=== PATIENT | male | born 1955 | race Caucasian/White ===

== ENCOUNTER 2019-01-26 18:24 | Emergency (ER) | payer OTHER ==
[~2019-01-26] VITALS: Ht 177.8 cm; Wt 136.1 kg
--- OUTSIDE RECORDS SUMMARY | 2019-01-26 18:28 | XMS REPORT | Continuity of Care Document ---
Author Organization Unknown Address Unknown Allergies There is no data. Medications There is no data. Problems There is no data. Procedures There is no data. Results There is no data. Encounters ACCT No. Visit Date/Time Discharge Status Pt. Type Provider Facility Loc./Unit Complaint [id number] 01/26/2019 18:00:00 [facility] Outpatient SELF, DOUG Da Silva [facility]
[2019-01-26] MEDS ORDERED: LIDOCAINE 1% INJ 20 ML 20 ML VIAL INJ ONE (18:45)
[2019-01-26] MEDS ORDERED: TETANUS,DIPTH,PERTUSS P/F (BOOSTRIX) 0.5 ML VIAL IM ONE (18:45)
--- NOTE | 2019-01-26 18:53 | NUR ---
REPORT GIVEN TO SANDRA.
--- NOTE | 2019-01-26 19:50 | ED General ---
General Chief Complaint: Laceration Stated Complaint: LT RING FINGER LAC Nursing Triage Note: ARRIVED VIA AMB FROM URGENT CARE. PT STATES HE CUT HIS LEFT 4TH FINGER WITH A KNIFE. Nursing Sepsis Screen: No Definite Risk Source of Information: Patient Exam Limitations: No Limitations History of Present Illness Date Seen by Provider: Jan 26, 2019 Time Seen by Provider: 18:30 Initial Comments This 63-year-old gentleman presents to the emergency room with a large deep laceration on the finger pad of his left ring finger. He was passing a new knife from his right hand to his left hand when he accidentally cut himself. He denies any other injuries. Wound is oozing blood at this time. He presents with it wrapped in gauze. He is past due for his tetanus immunization. Allergies and Home Medications Allergies Coded Allergies: shrimp (Verified Allergy, Unknown, 01/26/19) Uncoded Allergies: RED PEPPER (Allergy, Unknown, 01/26/19) Home Medications Hydrocodone/Acetaminophen 1 Each Tablet, 1 TAB PO Q4-6HR Prescribed by: CHUCK ALBERTO on 01/26/191958 Patient Home Medication List Home Medication List Reviewed: Yes Review of Systems Review of Systems Constitutional: no symptoms reported EENTM: no symptoms reported Respiratory: no symptoms reported Cardiovascular: no symptoms reported Gastrointestinal: no symptoms reported Genitourinary: no symptoms reported Musculoskeletal: no symptoms reported Skin: see HPI Psychiatric/Neurological: No Symptoms Reported Hematologic/Lymphatic: No Symptoms Reported Past Gicpehf-Lwpbac-Ofgcti Hx Patient Social History Alcohol Use: Denies Use Recreational Drug Use: No Smoking Status: Never a Smoker Recent Foreign Travel: No Contact w/Someone Who Travel: No Recent Infectious Disease Expo: No Recent Hopitalizations: No Past Medical History Surgeries: Yes (KIDNEY REMOVAL, TESTICULAR) Nephrectomy Respiratory: No Cardiac: Yes Hypertension Neurological: No 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 oz. [id number]; BMI Method:Stated General Appearance: No Apparent Distress, WD/WN HEENT: PERRL/EOMI, Normal ENT Inspection Neck: Normal Inspection Respiratory: Lungs Clear, Normal Breath Sounds, No Accessory Muscle Use Cardiovascular: Regular Rate, Rhythm, No Edema, No Murmur Extremity: Other (2 cm deep laceration in the finger pad of the left ring finger with using blood) Neurologic/Psychiatric: Alert, Oriented x3, No Motor/Sensory Deficits, Normal Mood/Affect, bin filler II-XII Norm as Tested Skin: Normal Color, Warm/Dry, Other (see extremity exam above) Procedures/Interventions Wound Location: Other (left ring finger) Wound Length (cm): 2 Wound's Depth, Shape: linear, sub Q Wound Explored: clean Irrigated w/ Saline (ccs): 500 Betadine Prep?: Yes Anesthesia: 1% Lidocaine Volume Anesthetic (ccs): 4 Suture: Vicryl (Polysorb) Suture Size: 4-0 Number of Sutures: 7 Sterile Dressing Applied?: Yes Progress Digital block was performed with lidocaine. Skin was cleaned with alcohol and local injection was administered at the site of the wound. Wound was then scrubbed with chlorhexidine and normal saline and then irrigated with normal saline. Betadine was applied and sutures were placed to approximate the wound. Progress/Results/Core Measures Suspected Sepsis Recent Fever Within 48 Hours: No Infection Criteria Present: None New/Unexplained Altered Menta: No Sepsis Screen: No Definite Risk SIRS Temperature:98.0 Pulse: 96 Respiratory Rate: 16 Blood Pressure 183 /104 Mean: 130 Results/Orders My Orders Orders - CHUCK DURAN MD Dipht,Pertdalia(Acell),Tet Adult (Boostrix (01/26/19 18:45) Lidocaine 1% Inj 20 Ml (Xylocaine 1% Inj (01/26/19 18:45) Sulfamethoxazole/Trimet Ds Tab (Bactrim (01/26/19 20:00) Sulfamethoxazole/Trimet Ds Tab (Bactrim (01/26/19 20:00) Medications Given in ED Current Medications Medications Dose Ordered Sig/Dino Route Start Time Stop Time Status Last Admin Dose Admin Diphtheria/ Tetanus/Acell Pertussis 0.5 ml ONCE ONCE IM 01/26/19 18:45 01/26/19 18:46 DC 01/26/19 19:01 0.5 ML Lidocaine HCl 20 ml ONCE ONCE INJ 01/26/19 18:45 01/26/19 18:46 DC 01/26/19 18:59 20 ML Vital Signs/I&O 01/26/19 01/26/19 18:26 20:19 Temp 98.0 98.0 Pulse 96 96 Resp 16 16 B/P (MAP) 183/104 (130) 183/104 (130) Pulse Ox 97 97 O2 Delivery Room Air Capillary Refill : NONE Blood Pressure Mean: 130 Progress Note : Progress Note General block was performed on the finger. Laceration was cleaned and irrigated. It was repaired with absorbable suture. Bactrim DS 2 was given for infection prophylaxis. Tetanus booster was administered. Departure Impression Primary Impression: Laceration of finger Qualified Codes: S61.215A - Laceration without foreign body of left ring finger without damage to nail, initial encounter Disposition: HOME, SELF-CARE Condition: Improved Departure-Patient Inst. Decision time for Depature: 19:45 Referrals: SELF,DOUG MARIE (PCP) Primary Care Physician Patient Instructions: Laceration Repair With Stitches (DC) Add. Discharge Instructions: Keep your wound clean and dry except for normal handwashing and showering. You may allow soapy water to run over the wound but avoid scrubbing directly over the sutures. Your sutures will dissolve. Do not submerge or exposed to dirty environments until sutures haven't dissolved away. If sutures have not dissolved within 10 days and you would like them removed, you may return to have them removed. Monitor for signs of infection such as increasing swelling, increasing redness, puslike drainage, increasing pain, or fever. Return to care promptly if you notice these symptoms. You may leave the wound open to air when at rest, but cover when active or working. You may use a clean glove or a light dressing to cover. You may use antibiotic ointment to prevent the wound from sticking to the dressing. All discharge instructions reviewed with patient and/or family. Voiced understanding. Scripts Hydrocodone/Acetaminophen (Hydrocodone-Acetamin 5-325 mg) 1 Each Tablet 1 TAB PO Q4-6HR for Pain, #15 TAB Prov: CHUCK DURAN MD 01/26/19 CHUCK DURAN MD Jan 26, 2019 19:50
[2019-01-26] MEDS ORDERED: HYDR-3812 PO (19:59)
[2019-01-26] MEDS ORDERED: TRIM/SULFAMETH 160/800 (SEPTRA DS) TAB PO ONE ×2 (20:00)
[2019-01-26 20:19] VITALS: BP 183/104
== END 2019-01-26 20:06 | disposition home or self-care (01) ==
LOC: ER FS 18:25
DX: S61.214A Laceration without foreign body of right ring finger without damage to nail, initial encounter (principal); I10 Essential (primary) hypertension; M10.9 Gout, unspecified; Z90.5 Acquired absence of kidney; Z85.47 Personal history of malignant neoplasm of testis; Z23 Encounter for immunization; W26.0XXA Contact with knife, initial encounter
CPT/HCPCS: 12031; 64450; 90715

== ENCOUNTER 2021-01-16 13:02 | Emergency (ER) | payer OTHER ==
[~2021-01-16] VITALS: Ht 177.8 cm; Wt 140.0 kg
[~2021-01-16 13:02] MED LIST: ACHD5005 PO
--- NOTE | 2021-01-16 14:09 | Diagnostic Imaging Report ---
INDICATION: Fall with right elbow pain AP, oblique, and lateral views of the right elbow were obtained No fracture or acute bone abnormality is seen. There is no elevation of posterior fat pad. IMPRESSION: Negative right elbow. Dictated by: Dictated on workstation # [id number]
--- NOTE | 2021-01-16 14:11 | Diagnostic Imaging Report ---
Indication: Fall with right hand pain AP, oblique, and lateral views of the right hand are obtained. No fracture or acute bony abnormality is seen. There are mild degenerative findings in the carpal bones and 1st MCP joint. IMPRESSION: No acute abnormality of the right hand. Dictated by: Dictated on workstation # [id number]
--- NOTE | 2021-01-16 14:14 | Diagnostic Imaging Report ---
INDICATION: Fall with right shoulder pain AP, oblique, and transscapular views of the right shoulder are obtained No fracture or acute bone abnormality is seen. Glenohumeral joint and AC joint appear in good alignment. IMPRESSION: Negative right shoulder. Dictated by: Dictated on workstation # [id number]
[2021-01-16 14:15] LABS: WHITE BLOOD COUNT 8.2 10^3/uL (4.3-11.0)
[2021-01-16 14:16] LABS: BASOPHILS % (AUTO) 1 % (0-10); EOSINOPHILS % (AUTO) 2 % (0-10); HEMATOCRIT 36 % (40-54); HEMOGLOBIN 11.7 G/DL (13.3-17.7); LYMPHOCYTES # (AUTO) 1.9 X 10^3 (1.0-4.0); LYMPHOCYTES % (AUTO) 23 % (12-44); MEAN CORPUSCULAR HEMOGLOBIN 26 PG (25-34); MEAN CORPUSCULAR HGB CONC 32 G/DL (32-36); MEAN CORPUSCULAR VOLUME 80 FL (80-99); MEAN PLATELET VOLUME 8.2 FL (7.4-10.4); MONOCYTES % (AUTO) 8 % (0-12); NEUTROPHILS # (AUTO) 5.3 X 10^3 (1.8-7.8); NEUTROPHILS % (AUTO) 64 % (42-75); PLATELET COUNT 221 10^3/uL (130-400)
[2021-01-16 14:17] LABS: BASOPHILS # (AUTO) 0.1 10^3/uL (0.0-0.1); EOSINOPHILS # (AUTO) 0.2 10^3/uL (0.0-0.3); MONOCYTES # (AUTO) 0.7 X 10^3 (0.0-1.0)
--- NOTE | 2021-01-16 14:24 | ED Upper Extremity ---
General Chief Complaint: General Problems/Pain Stated Complaint: RIGHT SHOULDER PAIN | RIGHT ELBOW PAIN | BACK PAIN Nursing Triage Note: Patient reports he was driving on a long trip when his right arm/wrist/elbow began hurting. He also reports right shoulder/upper back pain that he attributes to "favoring" his right arm. He reports a fall one month ago, states he had no pain in his right elbow/arm/wrist until 5 days ago. Nursing Sepsis Screen: No Definite Risk Source: patient History of Present Illness Date Seen by Provider: Jan 16, 2021 Time Seen by Provider: 13:45 Initial Comments Patient is a right-handed male who presents with right elbow pain described as sharp throbbing and radiating. Pain is intermittent and last for minutes at a time. It is rated moderate to severe. Pain is worse with hand and arm use. Pain radiates from the lateral epicondyle into the wrist and up to the mid arm region. He denies shoulder aching chest pain, tightness or shortness of breath. Symptoms are nonexertional but reproduce only with extremity movement. No weakness or loss of sensation. Patient first noticed symptoms after driving several hours 2 days neuro and using an abnormal steering technique with his right hand several days ago. No therapies or medications taken prior to ED arrival.. Onset: last week Pain/Injury Location: right elbow, right forearm, right wrist Method of Injury: other Modifying Factors: Improves With Other Allergies and Home Medications Allergies Coded Allergies: shrimp (Verified Allergy, Unknown, 01/26/19) Ivrxllm-Kto-Ejz Reductase Inhibitor (Verified Adverse Reaction, Unknown, muscle pain, 01/16/21) Uncoded Allergies: RED PEPPER (Allergy, Unknown, 01/26/19) Home Medications Hydrocodone Bit/Acetaminophen 1 Each Tablet, 1 TAB PO Q4-6HR Prescribed by: CHUCK ALBERTO on 01/26/191958 Patient Home Medication List Home Medication List Reviewed: Yes Review of Systems Constitutional: see HPI EENTM: see HPI Respiratory: see HPI Cardiovascular: see HPI Gastrointestinal: see HPI Genitourinary: see HPI Musculoskeletal: see HPI Skin: see HPI Psychiatric/Neurological: See HPI All Other Systems Reviewed Negative Unless Noted: Yes Past Yzifjik-Nkehsf-Chbzge Hx Past Med/Social Hx: Reviewed Nursing Past Med/Soc Hx Patient Social History Alcohol Use: Denies Use Smoking Status: Never a Smoker 2nd Hand Smoke Exposure: No Recent Infectious Disease Expo: No Recent Hopitalizations: No Past Medical History Surgeries: Yes (KIDNEY REMOVAL, TESTICULAR, colon resection) Gallbladder, Nephrectomy Respiratory: No Cardiac: Yes High Cholesterol, Hypertension Neurological: No 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 oz. 136.028483uu; 44.00 BMI Method:Stated General Appearance: WD/WN, no apparent distress Neck: non-tender, full range of motion, supple, normal inspection Back: normal inspection Shoulder: no evidence of injury Elbow/Forearm: pain, soft tissue tenderness, swelling (Lateral epicondyle) Wrist: Yes normal inspection, Yes non-tender Hand: normal inspection, non-tender Neurologic/Psychiatric: no motor/sensory deficits, alert, oriented x 3 Procedures/Interventions Suture Size: 4-0 Progress/Results/Core Measures Results/Orders Lab Results Laboratory Tests Test 01/16/21 14:00 Range/Units White Blood Count 8.2 4.3-11.0 10^3/uL Red Blood Count 4.52 4.35-5.85 10^6/uL Hemoglobin 11.7 L 13.3-17.7 G/DL Hematocrit 36 L 40-54 % Mean Corpuscular Volume 80 80-99 FL Mean Corpuscular Hemoglobin 26 25-34 PG Mean Corpuscular Hemoglobin Concent 32 32-36 G/DL Red Cell Distribution Width 15.7 H 10.0-14.5 % Platelet Count 221 130-400 10^3/uL Mean Platelet Volume 8.2 7.4-10.4 FL Immature Granulocyte % (Auto) 1 % Neutrophils (%) (Auto) 64 42-75 % Lymphocytes (%) (Auto) 23 12-44 % Monocytes (%) (Auto) 8 0-12 % Eosinophils (%) (Auto) 2 0-10 % Basophils (%) (Auto) 1 0-10 % Neutrophils # (Auto) 5.3 1.8-7.8 X 10^3 Lymphocytes # (Auto) 1.9 1.0-4.0 X 10^3 Monocytes # (Auto) 0.7 0.0-1.0 X 10^3 Eosinophils # (Auto) 0.2 0.0-0.3 10^3/uL Basophils # (Auto) 0.1 0.0-0.1 10^3/uL Immature Granulocyte # (Auto) 0.1 0.0-0.1 10^3/uL My Orders Orders - ALCIRA DENNIS DO Cbc With Automated Diff (01/16/21 13:32) Comprehensive Metabolic Panel (01/16/21 13:32) Hand 3 View Right (01/16/21 13:32) Elbow 3 View Right (01/16/21 13:32) Shoulder 3 View Right (01/16/21 13:47) Vital Signs/I&O 01/16/21 13:14 Temp 36.4 Pulse 61 Resp 18 B/P (MAP) 220/111 (147) Pulse Ox 96 O2 Delivery Room Air Blood Pressure Mean: 147 Departure Communication (Admissions) Right shoulder/elbow/wrist: No acute disease per radiology report. Reproducible right elbow pain most consistent with lateral epicondylitis. Impression Primary Impression: Tennis elbow syndrome Disposition: 01 HOME, SELF-CARE Condition: Stable Departure-Patient Inst. Decision time for Depature: 14:24 Referrals: DOUG KNIGHT MD (PCP/Family) Primary Care Physician Patient Instructions: Lateral Epicondylitis (DC) Add. Discharge Instructions: Please wear arm sling, and take naproxen 500 mg twice daily. Avoid repetitive strain right arm movements. Follow-up with your PCP in 10 to 12 days if symptoms persist. All discharge instructions reviewed with patient and/or family. Voiced understanding. ALCIRA DENNIS DO Jan 16, 2021 14:24
[2021-01-16 14:32] LABS: BUN/CREATININE RATIO 17; CALCIUM 9.6 MG/DL (8.5-10.1); CARBON DIOXIDE 25 MMOL/L (21-32); CHLORIDE 105 MMOL/L (98-107); CREATININE SERUM 2.09 MG/DL (0.60-1.30); GFR ESTIMATED 32; GLUCOSE 117 MG/DL (70-105); POTASSIUM 4.8 MMOL/L (3.6-5.0); SODIUM 139 MMOL/L (135-145)
[2021-01-16 14:33] LABS: ALANINE AMINOTRANSFERASE 31 U/L (0-55); ALBUMIN 3.7 GM/DL (3.2-4.5); ALKALINE PHOSPHATASE 55 U/L (40-136); BILIRUBIN,TOTAL < 0.2 MG/DL (0.1-1.0)
[2021-01-16 14:46] VITALS: BP 190/92
== END 2021-01-16 14:46 | disposition home or self-care (01) ==
LOC: EDUNIT# 13:02 → ER FS 13:05
DX: M77.11 Lateral epicondylitis, right elbow (principal); I10 Essential (primary) hypertension; Z88.8 Allergy status to other drugs, medicaments and biological substances
CPT/HCPCS: 36415; 73030; 73080; 73130; 80053; 85025

== ENCOUNTER 2023-03-31 13:26 | Emergency (ER) | payer MEDICARE, OTHER ==
[~2023-03-31] VITALS: Ht 177.8 cm; Wt 136.9 kg
[2023-03-31 13:49] LABS: BASOPHILS # (AUTO) 0.1 10^3/uL (0.0-0.1); BASOPHILS % (AUTO) 0 % (0-10); EOSINOPHILS % (AUTO) 0 % (0-10); HEMATOCRIT 26 % (40-54); HEMOGLOBIN 8.8 g/dL (13.3-17.7); LYMPHOCYTES # (AUTO) 0.8 10^3/uL (1.0-4.0); LYMPHOCYTES % (AUTO) 2 % (12-44); MEAN CORPUSCULAR HEMOGLOBIN 28 pg (25-34); MEAN CORPUSCULAR HGB CONC 34 g/dL (32-36); MEAN CORPUSCULAR VOLUME 85 fL (80-99); MEAN PLATELET VOLUME 9.7 fL (9.0-12.2); MONOCYTES # (AUTO) 1.5 10^3/uL (0.0-1.0); MONOCYTES % (AUTO) 4 % (0-12); NEUTROPHILS # (AUTO) 28.3 10^3/uL (1.8-7.8); NEUTROPHILS % (AUTO) 83 % (42-75); PLATELET COUNT 180 10^3/uL (130-400)
[2023-03-31 13:52] LABS: WHITE BLOOD COUNT 34.2 10^3/uL (4.3-11.0)
[2023-03-31] MEDS ORDERED: fentaNYL INJ 100 MCG/2 ML AMP IVP ONE (14:00)
[2023-03-31] MEDS ORDERED: PIPERACILLIN SODIUM/TAZOBACTAM 4.5 GM in NS (IVPB) 100 ML IV ONE (14:00)
[2023-03-31] MEDS ORDERED: fentaNYL INJ 100 MCG/2 ML AMP ONE (14:00)
--- NOTE | 2023-03-31 14:05 | ED General ---
General Chief Complaint: Lower Extremity Stated Complaint: RT LEG SWELLING Nursing Triage Note: Patient reports right lower extremity swollen and reddened for 1 week. Source of Information: Patient, EMS, Family Exam Limitations: No Limitations History of Present Illness Date Seen by Provider: Mar 31, 2023 Time Seen by Provider: 13:58 Initial Comments This 67-year-old gentleman presents to the emergency room with approximately 1 week of right lower extremity pain, swelling, and edema. He presented to his primary care provider yesterday and was started on doxycycline. Labs were obtained at that time. He received a phone call from the clinic today stating his labs were "out of whack" and that he needed to present to the emergency room promptly. EMS was activated and he presents to the emergency room via EMS. Vit al signs are unremarkable and he is afebrile on arrival. Patient gives a history of nephrectomy with single functioning kidney at this time. He denies history of diabetes. Patient's primary care provider is Dr. Narvaez. [facility] also [facility]. Allergies and Home Medications Allergies Coded Allergies: shrimp (Verified Allergy, Unknown, 01/26/19) Evqintl-Yyw-Ooq Reductase Inhibitor (Verified Adverse Reaction, Unknown, muscle pain, 01/16/21) Uncoded Allergies: RED PEPPER (Allergy, Unknown, 01/26/19) Patient Home Medication List Home Medication List Reviewed: Yes Hydrocodone Bit/Acetaminophen (Lortab 5 Mg Tablet) 1 Each Tablet, 1 TAB PO Q4- 6HR Prescribed by: CHUCK ALBERTO on 01/26/191958 Review of Systems Review of Systems Constitutional: no symptoms reported EENTM: no symptoms reported Respiratory: no symptoms reported Cardiovascular: see HPI Gastrointestinal: no symptoms reported Genitourinary: no symptoms reported Musculoskeletal: no symptoms reported Skin: see HPI Psychiatric/Neurological: No Symptoms Reported Hematologic/Lymphatic: No Symptoms Reported Immunological/Allergic: no symptoms reported Past Fnbxinb-Grfgen-Hzygzz Hx Patient Social History Tobacco Use?: No Use of E-Cig and/or Vaping dev: No Substance use?: No Alcohol Use?: No Pt feels they are or have been: No Immunizations Up To Date First/Initial COVID19 Vaccinat: Nov 29, 2020 Second COVID19 Vaccination Arie: December 27, 2020 Third COVID19 Vaccination Date: Feb 11th, 2021 Past Medical History Surgery/Hospitalization HX: RIGHT NEPHRECTOMY; RENAL CANCER; TESTICULAR CANCER; SLEEP APNEA; HTN; HIGH CHOLESTEROL; GOUT Surgeries: Yes (KIDNEY REMOVAL, TESTICULAR, colon resection) Gallbladder, Nephrectomy (Right), Testicular (Bilateral orchiectomy secondary to cancer) Respiratory: No Cardiac: Yes High Cholesterol, Hypertension Neurological: No Genitourinary: Yes (ONLY HAS ONE KIDNEY) Gastrointestinal: No Musculoskeletal: Yes Gout Endocrine: Yes ("pre-diabetes") HEENT: No Cancer: Yes Testicular, Kidney Psychosocial: No Integumentary: No Physical Exam-Suspected Sepsis Physical Exam Vital Signs Vital Signs - First Documented 03/31/23 13:41 Temp 37.5 Pulse 90 Resp 16 B/P (MAP) 116/37 (63) Pulse Ox 95 O2 Delivery Room Air Capillary Refill : Less Than 3 Seconds Blood Pressure Mean: 63 Height, Weight, BMI Height: 5'10.00" Weight: 300lbs. oz. 136.532618nq; 43.00 BMI Method:Stated General Appearance: WD/WN, Mild Distress (Secondary to pain in the right leg) HEENT: PERRL/EOMI, Normal ENT Inspection, Other (Oropharynx somewhat dry) Neck: Normal Inspection; No JVD Respiratory: Lungs Clear, Normal Breath Sounds, No Accessory Muscle Use, No Respiratory Distress Cardiovascular: Regular Rate, Rhythm, No Edema, No Murmur Gastrointestinal: Non Tender, Soft Extremity: Other (The majority of the right lower extremity is markedly edematous, erythematous, tender, and warm. There is blanching erythema from toes through the proximal thigh. Pedal pulses not palpable due to edema, but capillary refill is brisk through the toes. There is a dusky area about a centimeter in diameter near the arch of his foot with a deeper red appearance of the skin surrounding it. There is also a small amount of blood on the toe near the toenail of the third toe. The third toe on the left has a dusky ecchymotic appearance in the midportion. The distal portion of that toe is normal in appearance with brisk capillary refill.) Neurologic/Psychiatric: Alert, Oriented x3, No Motor/Sensory Deficits, Normal Mood/Affect Skin: other (See extremity exam above) Focused Exam Lactate Level 03/31/23 13:30: Lactic Acid Level 1.52 Lactic Acid Level Procedures/Interventions Suture Size: 4-0 Progress/Results/Core Measures Suspected Sepsis SIRS Temperature: Pulse: 90 Respiratory Rate: 16 Laboratory Tests 03/31/23 13:30: White Blood Count 34.2*H Blood Pressure 116 /37 Mean: 63 03/31/23 13:30: Lactic Acid Level 1.52 Laboratory Tests 03/31/23 13:30: Creatinine 10.86H, INR Comment 1.3, Platelet Count 180, Total Bilirubin 0.3 Results/Orders Lab Results Laboratory Tests Test 03/31/23 13:30 03/31/23 16:38 Range/Units White Blood Count 34.2 *H 4.3-11.0 10^3/uL Red Blood Count 3.10 L 4.30-5.52 10^6/uL Hemoglobin 8.8 L 13.3-17.7 g/dL Hematocrit 26 L 40-54 % Mean Corpuscular Volume 85 80-99 fL Mean Corpuscular Hemoglobin 28 25-34 pg Mean Corpuscular Hemoglobin Concent 34 32-36 g/dL Red Cell Distribution Width 15.0 H 10.0-14.5 % Platelet Count 180 130-400 10^3/uL Mean Platelet Volume 9.7 9.0-12.2 fL Immature Granulocyte % (Auto) 10 % Neutrophils (%) (Auto) 83 H 42-75 % Lymphocytes (%) (Auto) 2 L 12-44 % Monocytes (%) (Auto) 4 0-12 % Eosinophils (%) (Auto) 0 0-10 % Basophils (%) (Auto) 0 0-10 % Neutrophils # (Auto) 28.3 H 1.8-7.8 10^3/uL Lymphocytes # (Auto) 0.8 L 1.0-4.0 10^3/uL Monocytes # (Auto) 1.5 H 0.0-1.0 10^3/uL Eosinophils # (Auto) 0.0 0.0-0.3 10^3/uL Basophils # (Auto) 0.1 0.0-0.1 10^3/uL Immature Granulocyte # (Auto) 3.5 H 0.0-0.1 10^3/uL Neutrophils % (Manual) 72 % Lymphocytes % (Manual) 3 % Monocytes % (Manual) 4 % Band Neutrophils 21 % Platelet Estimate NORMAL Hypochromasia SLIGHT Poikilocytosis MODERATE Crenated Cell MODERATE Prothrombin Time 16.7 H 12.2-14.7 SEC INR Comment 1.3 0.8-1.4 Activated Partial Thromboplast Time 36 H 24-35 SEC Sodium Level 132 L 135-145 MMOL/L Potassium Level 5.3 H 3.6-5.0 MMOL/L Chloride Level 98 98-107 MMOL/L Carbon Dioxide Level 7 *L 21-32 MMOL/L Anion Gap 27 H 5-14 MMOL/L Blood Urea Nitrogen 125 *H 7-18 MG/DL Creatinine 10.86 H 0.60-1.30 MG/DL Estimat Glomerular Filtration Rate 5 BUN/Creatinine Ratio 12 Glucose Level 112 H 70-105 MG/DL Lactic Acid Level 1.52 0.50-2.00 MMOL/L Calcium Level 8.3 L 8.5-10.1 MG/DL Corrected Calcium 9.4 8.5-10.1 MG/DL Total Bilirubin 0.3 0.1-1.0 MG/DL Aspartate Amino Transf (AST/SGOT) 19 5-34 U/L Alanine Aminotransferase (ALT/SGPT) 34 0-55 U/L Alkaline Phosphatase 114 40-136 U/L C-Reactive Protein 36.30 H <0.50 MG/DL Total Protein 6.8 6.4-8.2 GM/DL Albumin 2.6 L 3.2-4.5 GM/DL Urine Color YELLOW Urine Clarity SL CLOUDY Urine pH 5.5 5-9 Urine Specific [place] 1.015 L 1.016-1.022 Urine Protein 3+ H NEGATIVE Urine Glucose (UA) NEGATIVE NEGATIVE Urine Ketones TRACE H NEGATIVE Urine Nitrite NEGATIVE NEGATIVE Urine Bilirubin NEGATIVE NEGATIVE Urine Urobilinogen 0.2 < = 1.0 MG/DL Urine Leukocyte Esterase 2+ H NEGATIVE Urine RBC (Auto) 1+ H NEGATIVE Urine RBC 5-10 H /HPF Urine WBC TNTC H /HPF Urine Crystals NONE /LPF Urine Bacteria MODERATE H /HPF Urine Casts NONE /LPF Urine Mucus NEGATIVE /LPF Urine Culture Indicated CULTURE PENDING My Orders Orders - CHUCK DURAN MD Cbc With Automated Diff (03/31/23 13:38) Comprehensive Metabolic Panel (03/31/23 13:38) Blood Culture (03/31/23 13:38) Sputum Culture (03/31/23 13:38) Urinalysis (03/31/23 13:38) Urine Culture (03/31/23 13:38) Protime With Inr (03/31/23 13:38) Partial Thromboplastin Time (03/31/23 13:38) Chest 1 View Ap/Pa Only (03/31/23 13:38) Ed Iv/Invasive Line Start (03/31/23 13:38) Vital Signs Adult Sepsis Patie Q15M (03/31/23 13:38) O2 (03/31/23 13:38) Remove Rings In Anticipation O (03/31/23 13:38) Lactic Acid Analyzer (03/31/23 13:38) Crp Fs (03/31/23 13:38) Us Venous Lower Ext Rt (03/31/23 13:38) Manual Differential (03/31/23 13:30) Piperacillin Sodium/Tazobactam (Zosyn Vi (03/31/23 14:00) Fentanyl Inj (Sublimaze Injection) (03/31/23 14:00) Fentanyl Inj (Sublimaze Injection) (03/31/23 14:00) Morphine Injection (Morphine Injection (03/31/23 14:13) Ns Iv 1000 Ml (Sodium Chloride 0.9%) (03/31/23 14:30) Ns Iv 1000 Ml (Sodium Chloride 0.9%) (03/31/23 16:15) Mejia Cath (03/31/23 16:21) Lidocaine 2% (Urojet) (Xylocaine Urojet) (03/31/23 16:30) Vancomycin Injection (Vancomycin Injecti (03/31/23 16:30) Morphine Injection (Morphine Injection (03/31/23 17:51) Medications Given in ED Current Medications Medications Dose Ordered Sig/Dino Route Start Time Stop Time Status Last Admin Dose Admin Fentanyl Citrate 50 mcg ONCE ONCE IVP 03/31/23 14:00 03/31/23 14:01 DC 03/31/23 14:04 50 MCG Lidocaine HCl 10 ml ONCE ONCE TOP 03/31/23 16:30 03/31/23 16:31 DC 03/31/23 17:00 10 ML Piperacillin Sod/ Tazobactam Sod 4.5 gm/Sodium Chloride 100 ml @ 200 mls/hr ONCE ONCE IV 03/31/23 14:00 03/31/23 14:29 DC 03/31/23 14:05 200 MLS/HR Vital Signs/I&O 03/31/23 03/31/23 13:41 18:11 Temp 37.5 Pulse 90 88 Resp 16 20 B/P (MAP) 116/37 (63) 121/79 Pulse Ox 95 94 O2 Delivery Room Air Room Air Capillary Refill : Less Than 3 Seconds Blood Pressure Mean: 63 Progress Note #1: Time: 14:06 Progress Note Patient was interviewed and examined upon arrival. Septic work-up is being pursued. Extreme leukocytosis of 34,000 was noted. Anemia with hemoglobin of 8.8 was also noted. Based on the appearance of his leg and extreme leukocytosis, antibiotic therapy is being initiated with Zosyn. Blood cultures and lactic acid are being processed. Pain is being treated with fentanyl 50 mcg IV in preparation for ultrasound of the right lower extremity. Progress Note #2: Time: 14:40 Progress Note Patient was having notable pain with the ultrasound study and was treated additionally with morphine 5 mg IV. Ultrasound revealed no evidence of DVT. Labs have been reviewed and interpreted in their entirety by me. Patient appears to have sepsis with marked leukocytosis and CRP of 36. He does technically meet SIRS criteria with leukocytosis, heart rate of 90, and source of infection. Blood cultures and lactic acid were obtained. Lactic acid was surprisingly normal. CMP revealed a florid acute renal failure with creatinine of 10.86, BUN of 125, GFR of 5, and CO2 of 7. Potassium is slightly elevated at 5.3. Patient is finishing his first liter of normal saline and a second liter is being initiated. Zosyn was ordered for initial antibiotic therapy. Vital signs are surprisingly normal. Patient's primary care provider is Dr. NARVAEZ. His die designer is Dr. Morgan at [facility] in [place]. I have placed a call to the [place] transfer center and am awaiting a call call back. Progress Note #3: Time: 16:40 Progress Note Transfer has been accepted by Dr. Roque, hospitalist, at [facility] in [place]. In speaking with Dr. Roque, he has requested that the patient receive a dose of vancomycin. I also discussed the case with Dr. Morgan, his primary die designer at [facility]. He agrees with the dose of vancomycin. They have requested a Mejia catheter be placed. I confirmed the appropriate loading dose of vancomycin with the pharmacist before ordering. We are presently awaiting bed assignment to transfer the patient. He is receiving his third liter of IV fluid. Diagnostic Imaging Diagonstic Imaging: Ultrasound Plain Films/CT/US/NM/MRI: leg Comments NAME: WEI OLEA [facility] REC#: [id number] PT STATUS: REG ER : 1955 PHYSICIAN: CHUCK DURAN MD ADMIT DATE: 03/31/23/ER FS Draft Date of Exam:03/31/23 US VENOUS LOWER EXT RT PROCEDURE: US right lower extremity venous. TECHNIQUE: Multiple real-time grayscale images were obtained over the right lower extremity in various projections. Additional spectral analysis and color Doppler duplex images were also obtained. INDICATION: Right lower extremity swelling. There is no evidence of right lower extremity DVT. Right lower extremity deep venous system shows normal compressibility with normal response to augmentation and Valsalva. No fluid collection or mass is identified. There does appear to be some edema in the subcutaneous tissues. IMPRESSION: No evidence of right lower extremity DVT. Dictated on workstation # [id number] Dict: 03/31/23 1427 Trans: 03/31/23 1429 MARIA FERNANDA [id number] Interpreted by: FELIPA VACA MD Diagonstic Imaging: Xray Plain Films/CT/US/NM/MRI: chest Comments NAME: WEI OLEA [facility] REC#: [id number] PT STATUS: REG ER : 1955 PHYSICIAN: CHUCK DURAN MD ADMIT DATE: 03/31/23/ER FS Draft Date of Exam:03/31/23 CHEST 1 VIEW AP/PA ONLY EXAMINATION: Chest 1 view HISTORY: Septic evaluation COMPARISON: None available. FINDINGS: Heart size is upper limits of normal. The lungs are clear without consolidation, pleural effusion, or pneumothorax. Degenerative changes of the thoracic spine. Osseous structures are otherwise intact. IMPRESSION: 1. No acute radiographic abnormality in the chest. Dictated on workstation # [id number] Dict: 03/31/23 1541 Trans: 03/31/23 1542 CV [id number] Interpreted by: TAD DUGAN DO Departure Impression Primary Impression: Sepsis Qualified Codes: A41.9 - Sepsis, unspecified organism; R65.20 - Severe sepsis without septic shock; N17.9 - Acute kidney failure, unspecified Additional Impressions: Acute kidney failure Qualified Codes: N17.9 - Acute kidney failure, unspecified Cellulitis of right lower extremity Disposition: XFER SHT-TRM HOSP Condition: Stable Transfer Transfer Reason: Exceeds level of care Time Spoke to Accepting Phy: 16:30 Transfer Progress Notes Transfer accepted by Dr. Roque, hospitalist at [facility] in [place]. Consultation with Dr. Morgan, die designer, occurred during the phone call with Dr. Roque. Transfer Time: 17:52 Transfer Facility: [facility] Method of Transfer: EMS Departure-Patient Inst. Referrals: DOUG NARVAEZ MD (PCP/Family) Primary Care Physician Copy Copies To 1: DOUG NARVAEZ MD, JOSHUA T MD Mar 31, 2023 14:05
[2023-03-31 14:06] LABS: BILIRUBIN,TOTAL 0.3 MG/DL (0.1-1.0); CALCIUM 8.3 MG/DL (8.5-10.1); CREATININE SERUM 10.86 MG/DL (0.60-1.30); POTASSIUM 5.3 MMOL/L (3.6-5.0)
[2023-03-31 14:07] LABS: ALBUMIN 2.6 GM/DL (3.2-4.5); INR 1.3 (0.8-1.4); PROTHROMBIN TIME PATIENT 16.7 SEC (12.2-14.7); TOTAL PROTEIN 6.8 GM/DL (6.4-8.2)
[2023-03-31] MEDS ORDERED: morphine INJ 10 MG/ML 1ML (SYR OR VIAL) IVP STA ×2 (14:13→17:51)
[2023-03-31 14:22] LABS: BAND NEUTROPHILS 21 %; HYPOCHROMASIA SLIGHT; LYMPHOCYTES % (MANUAL) 3 %; MONOCYTES % (MANUAL) 4 %; NEUTROPHILS % (MANUAL) 72 %; PLATELET ESTIMATE NORMAL
[2023-03-31 14:23] LABS: CRENATED RBC MODERATE; POIKILOCYTOSIS MODERATE
--- NOTE | 2023-03-31 14:29 | Diagnostic Imaging Report ---
PROCEDURE: US right lower extremity venous. TECHNIQUE: Multiple real-time grayscale images were obtained over the right lower extremity in various projections. Additional spectral analysis and color Doppler duplex images were also obtained. INDICATION: Right lower extremity swelling. There is no evidence of right lower extremity DVT. Right lower extremity deep venous system shows normal compressibility with normal response to augmentation and Valsalva. No fluid collection or mass is identified. There does appear to be some edema in the subcutaneous tissues. IMPRESSION: No evidence of right lower extremity DVT. Dictated by: Dictated on workstation # [id number]
[2023-03-31] MEDS ORDERED: NS IV 1000 ML 1,000 ML IV SCH ×2 (14:30→16:15)
--- NOTE | 2023-03-31 15:43 | Diagnostic Imaging Report ---
EXAMINATION: Chest 1 view HISTORY: Septic evaluation COMPARISON: None available. FINDINGS: Heart size is upper limits of normal. The lungs are clear without consolidation, pleural effusion, or pneumothorax. Degenerative changes of the thoracic spine. Osseous structures are otherwise intact. IMPRESSION: 1. No acute radiographic abnormality in the chest. Dictated by: Dictated on workstation # [id number]
[2023-03-31] MEDS ORDERED: LIDOCAINE UROJET 2% GEL 10 ML PKG TOP ONE (16:30)
[2023-03-31] MEDS: VANCOMYCIN INJECTION 1,000 MG in NS (IVPB) 250 ML IV SCH ×2 (16:42→17:58)
[2023-03-31 16:44] LABS: BILIRUBIN,URINE NEGATIVE (NEGATIVE); CLARITY,URINE SL CLOUDY; COLOR,URINE YELLOW; GLUCOSE, URINE (UA) NEGATIVE (NEGATIVE); KETONES,URINE TRACE (NEGATIVE); LEUKOCYTE ESTERASE ,URINE 2+ (NEGATIVE); NITRITE,URINE NEGATIVE (NEGATIVE); PH,URINE 5.5 (5-9); PROTEIN,URINE 3+ (NEGATIVE)
[2023-03-31 16:50] LABS: BACTERIA,URINE MODERATE /HPF; WBC,URINE TNTC /HPF
[2023-03-31 18:11] VITALS: BP 121/79
== END 2023-03-31 18:14 | disposition short-term general hospital (02) ==
LOC: EDUNIT# 13:26 → ER FS 13:27
DX: A41.9 Sepsis, unspecified organism (principal); R65.20 Severe sepsis without septic shock; N17.9 Acute kidney failure, unspecified; L03.115 Cellulitis of right lower limb; D64.9 Anemia, unspecified; Z90.5 Acquired absence of kidney
CPT/HCPCS: 36415; 51702; 71045; 80053; 81000; 83605; 85007; 85027; 85610; 85730; 86141; 87040; 87088